=== PATIENT | female | born 2000 | race Caucasian/White ===

== ENCOUNTER 2020-04-23 16:08 | Emergency (ER) | payer OTHER, MEDICAID ==
[~2020-04-23] VITALS: Ht 149.9 cm; Wt 64.9 kg
[2020-04-23] MEDS ORDERED: HEARTBURN MED (16:27)
[2020-04-23] MEDS ORDERED: ENBRACE HR SOF1 EACH PO (16:27)
[2020-04-23 18:36] VITALS: BP 131/81
== END 2020-04-23 18:36 | disposition short-term general hospital (02) ==
LOC: M.ERS 16:08
DX: O26.893 Other specified pregnancy related conditions, third trimester (principal); R10.30 Lower abdominal pain, unspecified; Z3A.33 33 weeks gestation of pregnancy; Y08.89XA Assault by other specified means, initial encounter; Y93.89 Activity, other specified; Y92.89 Other specified places as the place of occurrence of the external cause; Y99.8 Other external cause status

== ENCOUNTER 2021-03-15 13:16 | Emergency (ER) | payer OTHER, MEDICAID ==
[~2021-03-15] VITALS: Ht 149.9 cm; Wt 54.0 kg
[~2021-03-15 13:16] MED LIST: ENBRACE HR SOF1 EACH PO; HEARTBURN MED
[2021-03-15 14:19] VITALS: BP 126/91
== END 2021-03-15 14:21 | disposition home or self-care (01) ==
LOC: M.ERS 13:16
DX: J06.9 Acute upper respiratory infection, unspecified (principal); Z20.822 Contact with and (suspected) exposure to COVID-19; Z88.8 Allergy status to other drugs, medicaments and biological substances